=== PATIENT | male | born 1995 | race African-American/Black ===

== ENCOUNTER 2020-09-27 18:42 | Emergency (ER) | payer SELFPAY ==
[~2020-09-27] VITALS: Ht 177.8 cm; Wt 74.8 kg
[2020-09-27 18:43] VITALS: BP 147/83
[2020-09-27 19:19] LABS: Alcohol, Urine < 3.0 mg/dL (0-10); Amphetamine Screen, Urine NEGATIVE (NEGATIVE); Barbiturate Scree,Urine NEGATIVE (NEGATIVE); Benzodiazephine Screen, Urine NEGATIVE (NEGATIVE); Cannabinoid Screen, Urine NEGATIVE (NEGATIVE); Cocaine Screen, Urine NEGATIVE (NEGATIVE); Opiate Scree,Urine NEGATIVE (NEGATIVE); Phencyclidine Screen, Urine NEGATIVE (NEGATIVE)
== END 2020-09-27 20:16 | disposition left against medical advice (07) ==
LOC: ER 18:44
DX: R00.2 Palpitations (principal); Z53.21 Procedure and treatment not carried out due to patient leaving prior to being seen by health care provider
CPT/HCPCS: 71045; 80307; 93005